=== PATIENT | female | born 1950 | race Caucasian/White ===

== ENCOUNTER 2022-01-25 08:30 | Day surgery (SDC) | payer MEDICARE, BC ==
[~2022-01-25] VITALS: Ht 162.6 cm; Wt 68.0 kg
[2022-01-25 08:50] VITALS: BP 132/88
[2022-01-25] MEDS ORDERED: fentaNYL/PF 50MCG/1 ML 2ML syringe ONE (08:52)
[2022-01-25] MEDS ORDERED: LIDOcaine Viscous 15ml cup ONE (08:52)
[2022-01-25] MEDS ORDERED: MIDAZolam 1 MG/ML 5ML VIAL ONE (08:52)
[2022-01-25] MEDS ORDERED: SPIR50TA5 PO (09:31)
[2022-01-25] MEDS ORDERED: TACR1CAP24 PO (09:31)
[2022-01-25] MEDS ORDERED: URSO500T PO (09:31)
[2022-01-25] MEDS ORDERED: MYCO250C46 PO (09:31)
[2022-01-25] MEDS ORDERED: AMIO100T4 PO (09:31)
[2022-01-25] MEDS ORDERED: PANT-47 PO (09:31)
[2022-01-25] MEDS ORDERED: FLUC200T28 PO (09:31)
[2022-01-25] MEDS ORDERED: SULF-14 PO (09:31)
[2022-01-25 10:02] VITALS: BP 124/80
[2022-01-25 10:12] VITALS: BP 131/86
[2022-01-25 10:22] VITALS: BP 136/71
[2022-01-25 10:32] VITALS: BP 138/73
== END 2022-01-25 10:45 | disposition home or self-care (01) ==
LOC: GI LAB 08:30
PROVIDERS: ATTEND Internal Medicine Gastroenterology
DX: R13.10 Dysphagia, unspecified (principal); R12 Heartburn; K21.00 Gastro-esophageal reflux disease with esophagitis, without bleeding; K22.2 Esophageal obstruction; K31.89 Other diseases of stomach and duodenum; Z94.0 Kidney transplant status; Z94.4 Liver transplant status; Z88.5 Allergy status to narcotic agent
CPT/HCPCS: 43239; 43249; C1726; G0500; J2250; J3010; J7040; Z7512; 88305; 99152; A4620